=== PATIENT | male | born 1970 | race Caucasian/White ===

== ENCOUNTER 2024-09-17 17:41 | Emergency (ER) | payer SELFPAY ==
[2024-09-17] VITALS (7 sets, daily range): BP systolic 136–147; BP diastolic 82–97; PULSE 88–119; RESP 15–95; TEMP 36.4–37.2; O2SAT 93–97; BMI 34.6
--- NOTE | 2024-09-17 17:51 | EKG_ITS ---
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
--- NOTE | 2024-09-17 17:51 | XR_ITS ---
Examination: CT brain head without contrast. 2-D sagittal coronal reconstructions Date and time of exam:September 17, 2024 1759 hours INDICATIONS: Stroke alert onset focal neurologic deficit today CTDI: vol (mGy):60.1 DLP: (mGycm):1298 Technique: Multiple CT axial sections of the brain have been obtained, 5 mm slice thickness. Contrast has not been administered. 2-D sagittal, coronal reconstructions have been obtained Low dose protocols were performed. One or more of the following dose reduction techniques were used; automated exposure control, adjustment of the mA and/or KV according to patient size, use of iterative reconstruction technique. Findings: No significant ventricular enlargement. Intra-axial or extra-axial hemorrhage density is not seen. No mass effect or midline shift Basal cisterns are not remarkable. Fourth ventricle is midline. Cranial vault intact. Impression: Negative for acute hemorrhage, mass effect or midline shift
--- NOTE | 2024-09-17 18:04 | PC.NURSE ---
PT BROUGHT IN BY FOR RIGHT SIDED FACIAL WEAKNESS. STATES LAST KNOWN WELL WAS LAST NIGHT 2330. STATES THAT THIS MORNING AROUND PT C/O HIS LIP FEELING FUNNY , THEN AT 1630 PT STATED THAT HE COULD NOT HOLD WATER IN HIS MOUTH AND THEN NOTICED THAT PT HAD RIGHT SIDED FACIAL WEAKNESS. PT WAS THEN BROUGHT INTO THE ER FOR EVALUATION AND TAKE STRAIGHT TO CT. PT IS CURRENTLY IN CT.
--- NOTE | 2024-09-17 18:07 | PD.EDNEURO ---
Neuro Symptoms Deficit-RME/HPI General Chief Complaint: Neuro Symptoms/Deficit Stated Complaint: RIGHT SIDE WEAKNESS TO FACE Time Seen by Provider: 09/17/24 18:06 Arrival date/time: 09/17/24 17:41 54 year old male present to emergency room with c/o of right side weakness for 1 hour. pt report facial droop and dripping out of mouth when drinking water. LOCATION: right facial droop SEVERITY: Symptoms are described as being severe with limitations on activities of daily living CONTEXT: The patient is unable to identify any inciting events. DURATION/TIMING: The symptoms started approximately [one day] ago and have been constant since and have been progressive getting worse. ASSOCIATED SYMPTOMS: The patient is unable to identify any other associated symptoms. MODIFYING FACTORS: The patient is unable to identify any alleviating or aggravating symptoms. PERTINENT ROS: no fevers, no cough, no pleuritic pain, no ripping or tearing sensations, denies any lower extremity edema and no unilateral swelling, no chest pain/shortness of breath no nausea,vomiting, diarrhea, no dizziness/headache no rash no loc/syncope episode no abd/back pain no dsyuria,urgency,frequency REVIEW OF SYSTEMS: See History of Present Illness - with the exception of those mentioned in the history of present illness, all other systems reviewed and reported as negative GENERAL: In general the patient is awake, interactive, in an emergency department [facility], wearing a hospital gown. HEAD/EARS/EYES/NOSE/THROAT: normo-cephalic, atraumatic, extra-ocular eye movements are intact without nystagmus or evidence of entrapment, pupils are equal round and reactive to light, mucus membranes are moist, anicteric, palpebral conjunctiva is pink. Thyroid is not tender, not enlarged and not nodular, no carotid bruit, no jugular venous distension, trachea is midline, uvula unremarkable, oropharyngeal cavity unremarkable without tonsilar swelling. No midline c-spine tenderness. Temporal arteries are not enlarged or tender. Tympanic membranes are within normal limits without erythema, distortion, fluid levels, fluid leak or anatomical signs of trauma. No evidence of submandibular or anterior cervical lymphadenopathy. Visual perception is full in all jesus. CARDIOVASCULAR: regular rate and regular rhythm, no murmurs/rubs or gallops, normal S1 and S2, heart sounds are not distant, strong pulses in all four extremities that are equal and symmetric bilateral upper and lower extremities. CHEST/PULMONARY: normal chest rise and fall, good air movement, clear to auscultation bilaterally without rhonchi, rales or wheezing, normal inspiratory to expiratory ratios without evidence of respiratory distress. ABDOMEN: soft, not tender, no rebound, no guarding, normal bowel sounds that are present in all four quadrants, no palpable organomegaly, no pulsatile masses, liver margin is not enlarged, not nodular and not tender, no caput or telangiectasia??s, no ascites, bilateral inguinal rings are closed without mass or hernia. BACK: no c/t/l spine tenderness, normal range of motion without reproducible pain, no costoverterbral angle tenderness, no step-offs or midline ecchymosis, no trauma. NEUROLOGICAL: + right facial droop, speech is clear, no obvious word finding difficulties and answers to questions are provided without hesitation or difficulty, normal motor and sensory function of the bilateral upper and lower extremities that are equal and symmetric left and right, no evidence of cerebellar dysfunction. Normal strength bilateral shoulder, elbows, wrists, hips, knees, and ankles to flexion, extension, internal and external rotation. EXTREMITY: no tenderness to palpation over the long bones or large joints of the bilateral upper and lower extremities, no joint swelling, no joint erythema, no signs of trauma, no unilateral leg swelling and no peripheral edema. SKIN: warm, dry, well-perfused, no jaundice, no rash, normal capillary refill, no telangiectasias or petechia. PSYCH: calm, cooperative, no evidence of psychosis or agitation, thought process is appropriate and no pressured speech. NIHSS is [ 1] Related Data Previous Rx's ?Medication ?Instructions ?Recorded acyclovir 400 mg tablet 400 mg PO .5x 7 days #35 tabs 09/17/24 Allergies Allergy/AdvReac Type Severity Reaction Status Date / Time Penicillins Allergy Verified 09/17/24 19:53 Course Quality Measures Suspected type of Stroke: Unknown at this time (n/a, most likely hayes palsy ) Tenecteplase given: Reason(s) TPA not given: Unable to determine eligibility (hayes palsy, not recommend by teleneuro ) not given stroke Orders Category Date Time Status Bedside Blood Glucose NOW Care 09/17/24 17:51 Active [employer] NOW Care 09/17/24 17:51 Active Continuous Pulse Oximetry NOW Care 09/17/24 17:51 Completed EKG (ED ONLY) *Do not use* NOW Care 09/17/24 17:51 Completed In and Out Catheter NEEDED Care 09/17/24 17:51 Active Insert IV NOW Care 09/17/24 17:51 Active NIH Stroke Scale now Care 09/17/24 17:51 Active NPO NOW Care 09/17/24 17:51 Active Nurse Swallow Screen x1 Care 09/17/24 17:51 Active Consult to Neurology / Tele-Neurology Routine Cons 09/17/24 17:[address] stroke protocol Stat Exams 09/17/24 17:51 Completed EKG (ED Only) Stat Exams 09/17/24 17:51 Draft BNP [B-Type Natriuretic Peptide] Stat Lab 09/17/24 19:00 Completed Beta Hydroxybutyrate Stat Lab 09/17/24 19:00 Completed CBC Stat Lab 09/17/24 17:57 Completed Comprehensive Metabolic Panel Stat Lab 09/17/24 17:57 Completed Drug Screen,Urine Stat Lab 09/17/24 18:54 Completed Magnesium Stat Lab 09/17/24 17:57 Completed Partial Thromboplastin Time Stat Lab 09/17/24 17:57 Completed Prothrombin Time with INR Stat Lab 09/17/24 17:57 Completed Troponin I Stat Lab 09/17/24 17:57 Completed Acyclovir Inj [Zovirax Inj] 800 mg Med 09/17/24 19:17 Discontinued Sodium Chloride 0.9% [Ns] 100 ml IV X1 Sodium Chloride 0.9% 1000 ml [Ns] 1,000 ml Med 09/17/24 18:49 Discontinued IV 999 mls/hr Sodium Chloride 0.9% 1000 ml [Ns] 1,000 ml Med 09/17/24 18:51 Discontinued IV 999 mls/hr Sodium Chloride 0.9% 1000 ml [Ns] 1,000 ml Med 09/17/24 20:40 Discontinued IV 999 mls/hr Oxygen Delivery NOW RT 09/17/24 17:51 Active Reevaluation(s) Reevaluation #1: pt is feeling good, comfortable to go home to follow up with PCP Vital Signs Vital signs: Vital Signs Pulse Rate 119 H 09/17/24 18:15 Neuro Symptoms / Deficit MDM Narrative MDM Narrative:: 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 ? ?History and physical consistent with Hayes''s Palsy with no forehead sparing. Will treat with antiviral''s and prednisone as appropriate. Will recommend eye lubricating gel to prevent dry eye and irritation of the eye with incomplete eye closure. Will recommend FU with PCP in 1 week.?? Healthy pt with gradual onset of right peripheral VII cranial nerve dysfunction. No cause elicited. Pt with no known tick bite and not recently in tick endemic area. no indication to send lyme studies. No URI or herpes infection. DW pt pathophysiology and recommended treatment. DW pt? R/b antivirals and steroids. DW pt risk of stomach irritation, stimulation and blood sugar effects in diabetes. DW pt sx inconsistent with dx and need to go to ED for right sided sx, arm or leg sx, headache, fever. Referral to neurologist for follow up. Prognosis DW pt including potential for persistent or recurrent sx.?? Medical decision making: pt here for evaluation of R sided facial droop with last known 1 hour ago Code stroke not activated given time of onset. He does have some very mild R sided eyebrow weakness and I suspect Hayes's Palsy.CT head wnl, No cardiac arrhythmias, no significant electrolyte abnormalities, no rashes to suggest zoster eruption. Pt will be d/c home on acylovi 400mg 5x for 7 days . Pt unsure if he will take the steroids due to his DM and this is acceptable. Discussed that most important thing is eye care--tape eyelid at night, artificial tears through the day, f/u with his night nurse in a few weeks for recheck. Pt to f/u with his PMD as needed.? Patient data External records reviewed:: [facility] previous records Clinical information provided by:: patient and family Social determinants that could affect healthcare access:: none Patient has the following chronic illnesses:: DM How is presenting disease/condition affected by chronic disease/condition?: uneffected by Evaluation data The following diagnostics were reviewed and interpreted by me:: lab results, radiology exam(s) and EKG tracing(s) Lab and/or radiology exams considered but not ordered:: CTA but teleneuro report no need. Interpretation Summary: CT head no acute findings cbc/cmp + blood glucose, trending down. Medications / Prescriptions Medications or Prescriptions considered but not ordered:: n/a Medication administrations:: Medication Administration History Discontinued Medications Sodium Chloride (Ns) 1,000 mls @ 999 mls/hr IV .Q1H1M ONE Stop: 09/17/24 19:49 Last Admin: 09/17/24 19:42 Dose: Not Given Documented By: CCT Non-Admin Reason: Cancelled by Provider Sodium Chloride (Ns) 1,000 mls @ 999 mls/hr IV .Q1H1M ONE Stop: 09/17/24 19:51 Last Infusion: 09/17/24 21:15 Dose: Infused Documented By: Admin: 09/17/24 19:45 Dose: 999 mls/hr Documented By: CCT Acyclovir Sodium 800 mg/ (Sodium Chloride) 116 mls @ 87.879 mls/hr IV X1 ONE Stop: 09/17/24 20:36 Last Infusion: 09/17/24 21:14 Dose: Infused Documented By: Admin: 09/17/24 19:44 Dose: 87.879 mls/hr Documented By: CCT Sodium Chloride (Ns) 1,000 mls @ 999 mls/hr IV .Q1H1M ONE Stop: 09/17/24 21:40 Last Admin: 09/17/24 20:57 Dose: 999 mls/hr Documented By: CCT as stated above Consultations Consultation(s) initiated? (list below): Yes Consultation #1 (Physician, Specialty, Details): spoke with teleneuro report most likely bells palsy, patient can go home , no need for CTA. blood glucose is trending downward after IV fluids, discussed about reduction of suger intake. Diagnosis Neuro Differential Diagnosis: subarachnoid hemorrhage, cerebrovascular accident, transient cerebral ischemia and other (Hayes palsy, DM ) Most likely diagnosis given after review of the tests above:: Hayes palsy, hyperglycermia Admission Indicated Admission indicated?: not indicated Admission Request Was there a request for admission?: No Disposition Plan Disposition Plan: Discharge Discharge Attestation Discharge Attestation: The patient and all family members were given an opportunity to ask questions and understood the discharge instructions. Discharge instructions specifically effects, indications for sooner follow up or return to the emergency department, and the expected course of current diagnosis. Patient condition: Stable Discharge Plan Plan Patient Disposition: HOME (Self Care) Health Concerns: Follow up with PCP as directed Return to ED if symptoms worsen Prescriptions/Referrals Prescriptions/Med Rec: New acyclovir 400 mg tablet 400 mg PO .5x 7 Days Qty: 35 0RF Rx Instructions: while awake; give 5 doses in 24 hours Problem List Clinical Impression: Hayes palsy, Hyperglycemia Patient/Caregiver Discharge Instructions Education Materials: ED Hayes's Palsy, ED Diabetes with High Blood Sugar Print Language: Occitan Stand Alone Forms: Keyanna Award Info., Patient Portal Info Letter
[2024-09-17 18:12] LABS: Basophils % (Auto) 1 % (0-2.5); Eosinophils # (Auto) 0.2 Thou/mm3 (0.0-0.5); Eosinophils % (Auto) 4 % (0-10); Hematocrit 39.8 % (41.0-53.0); Hemoglobin 14.2 g/dL (13.5-16.0); Immature Granulocytes % (Auto) 1 % (0-0); Immature Granulocytes Auto 0.04 Thou/mm3 (0.00-0.00); Lymphocytes # (Auto) 1.7 Thou/mm3 (1.0-4.8); Lymphocytes % (Auto) 28 % (10-50); Mean Corpuscular HGB Conc 35.7 g/dl (31.0-37.0); Mean Corpuscular Hemoglobin 31.2 pg (25.0-35.0); Mean Corpuscular Volume 88 fL (80-100); Monocytes # (Auto) 0.5 Thou/mm3 (0.0-0.8); Monocytes % (Auto) 8 % (0-12); Neutrophils # (Auto) 3.6 Thou/mm3 (1.8-7.7); Neutrophils % (Auto) 59 % (37-80); Nucleated Red Blood Cell # 0.06 Thou/mm3 (0.00-0.00); Nucleated Red Blood Cell % 1 /100 WBC (0); Platelet Count 275 Thou/mm3 (140-440); RDW Standard Deviation 40.2 fL (35.1-43.9); Red Blood Count 4.55 Miln/mm3 (4.50-5.90); White Blood Count 6.1 Thou/mm3 (3.8-10.6)
[2024-09-17 18:27] LABS: INR 0.9 (0.9-1.3); Partial Thromboplastin Time 24.8 Seconds (22.0-36.0); Prothrombin Time 10.4 Seconds (9.0-12.2)
[2024-09-17 18:46] LABS: Alanine Aminotransferase 27 U/L (10-49); Albumin, Serum 4.5 gm/dL (3.5-5.0); Albumin/Globulin Ratio 1.9 (1.2-2.2); Alkaline Phosphatase 91 U/L (46-116); Anion Gap 14 (7-16); Aspartate Amino Transferase 20 U/L (0-34); BUN/Creatinine Ratio 12 Ratio (12-20); Bilirubin,Total 0.3 mg/dL (0.3-1.2); Blood Urea Nitrogen 16 mg/dL (9-23); Calcium 9.9 mg/dL (8.3-10.6); Calcium (Corrected) 9.9 mg/dL (8.5-10.1); Carbon Dioxide 22.3 mMol/L (20.0-31.0); Chloride 99 mMol/L (98-107); Creatinine (Component) 1.3 mg/dL (0.6-1.3); Globulin 2.4 gm/dL (2.3-3.5); Magnesium 1.8 mg/dL (1.6-2.6); Osmolality,Calculated 294 (275-295); Potassium 4.1 mMol/L (3.4-5.1); Sodium 135 mMol/L (136-145); Total Protein 6.9 gm/dL (5.7-8.2); Troponin I < 0.002 ng/mL (0.0-0.045); eGFR > 60 See Note
[2024-09-17 18:47] LABS: Glucose 517 mg/dL (74-106)
--- NOTE | 2024-09-17 18:50 | PD.TNEURO ---
Tele Neuro Consultation Consultation Date 09/17/24 Most Recent Vital Signs Last Vital Signs Temp 98.5 F 09/17/24 18:23 Pulse 116 H 09/17/24 18:23 Resp 19 09/17/24 18:23 BP 147/92 H 09/17/24 18:23 Pulse Ox 95 09/17/24 18:23 O2 Del Method Room Air 09/17/24 18:23 Laboratory-Coagulation Panel PT 10.4 Seconds (9.0-12.2) 09/17/24 17:57 INR 0.9 (0.9-1.3) 09/17/24 17:57 APTT 24.8 Seconds (22.0-36.0) 09/17/24 17:57 Consultation Narrative [facility] Patient Name:???Germán Garrett Date of :???1970 Identification Number:??? Date of Service:???09/17/2024 17:48:53 Diagnosis:?G51.0 - Hayes palsy Impression: ?54M with PMHx C spine surgery (states LUE temporarily paralyzed after this), DMII, presents with R face changes, last normal at 10am this morning, worsening throughout the day. He notices his R eye won't close, and R side of his lips feels like novocaine. It was difficult to drink water. No dysphagia. He feels lightheaded. No numbness or weakness of any extremity. He has never had this happen before. ? ?On exam patient has R peripheral CN7 pattern weakness with reduced prominence of forehead wrinkles on the right, weakness of orbicularis karen and orbicularis oculi on the right, and no other deficits. Presentation consistent with Hayes?s palsy. ? Our recommendations are outlined below. Recommendations: ?Prednisone 60mg daily for 1 week; Valtrex 1 gram PO TID for 1 week; ?Strict return precautions - if develops contralateral face weakness, any involvement of any extremity, or no improvement in 2 weeks; ?Imperative to control DMII; ?Eye patch/eye ointment for at night Advanced Imaging:Advanced Imaging Deferred because: Stroke not suspected with clinical presentation and exam Metrics: Last Known Well: 09/17/2024 10:00:00 Dispatch Time: 09/17/2024 17:48:53 Arrival Time: 09/17/2024 17:41:00 Initial Response Time: 09/17/2024 17:50:56Symptoms: R eye weakness. Initial patient interaction: 09/17/2024 17:51:00 NIHSS Assessment Completed: 09/17/2024 18:20:00Patient is not a candidate for Thrombolytic. Thrombolytic Medical Decision: 09/17/2024 18:20:30Patient was not deemed candidate for Thrombolytic because of following reasons: other diagnosis suspected bells palsy. CT head showed no acute hemorrhage or acute core infarct. Primary Provider Notified of Diagnostic Impression and Management Plan on: 09/17/2024 18:24:21 History of Present Illness:Patient is a 54 year old Male. Patient was brought by private transportation with symptoms of R eye weakness. 54M with PMHx C spine surgery (states LUE temporarily paralyzed after this), DMII, presents with R face changes, last normal at 10am this morning, worsening throughout the day. He notices his R eye won't close, and R side of his lips feels like novocaine. It was difficult to drink water. No dysphagia. He feels lightheaded. No numbness or weakness of any extremity. He has never had this happen before. ? Past Medical History: ?Diabetes Mellitus Medications: No Anticoagulant use? No Antiplatelet use Reviewed EMR for current medications Allergies:? Reviewed Social History: Smoking: No Family History: There is no family history of premature cerebrovascular disease pertinent to this consultation ROS : 14 Points Review of Systems was performed and was negative except mentioned in HPI. Past Surgical History: There Is No Surgical History Contributory To Today?s Visit ? Examination: BP(146/95),?Pulse(116),?Blood Glucose(516) 1A: Level of Consciousness - Alert; keenly responsive?+ 0 1B: Ask Month and Age - Both Questions Right?+ 0 1C: Blink Eyes & Squeeze Hands - Performs Both Tasks?+ 0 2: Test Horizontal Extraocular Movements - Normal?+ 0 3: Test Visual Hodge - No Visual Loss?+ 0 4: Test Facial Palsy (Use Grimace if Obtunded) - Unilateral Complete paralysis (upper/lower face)?+ 3 5A: Test Left Arm Motor Drift - No Drift for 10 Seconds?+ 0 5B: Test Right Arm Motor Drift - No Drift for 10 Seconds?+ 0 6A: Test Left Leg Motor Drift - No Drift for 5 Seconds?+ 0 6B: Test Right Leg Motor Drift - No Drift for 5 Seconds?+ 0 7: Test Limb Ataxia (FNF/Heel-Daniel) - No Ataxia?+ 0 8: Test Sensation - Normal; No sensory loss?+ 0 9: Test Language/Aphasia - Normal; No aphasia?+ 0 10: Test Dysarthria - Normal?+ 0 11: Test Extinction/Inattention - No abnormality?+ 0 NIHSS Score:?3 Pre-Morbid Modified Samina Scale:1 Points = No significant disability despite symptoms; able to carry out all usual duties and activities Spoke with :?ER physician This consult was conducted in real time using interactive audio and video technology. Patient was informed of the technology being used for this visit and agreed to proceed. Patient located in hospital and provider located at home/office setting. Patient is being evaluated for possible acute neurologic impairment and high probability of imminent or life-threatening deterioration. I spent total of 35 minutes providing care to this patient, including time for face to face visit via telemedicine, review of medical records, imaging studies and discussion of findings with providers, the patient and/or family. Dr Tiffanie Cruz [facility] For Inpatient follow-up with [facility] physician please call [facility] at . As we are not an outpatient service for any post hospital discharge needs please contact the hospital for assistance. If you have any questions for the [facility] physicians or need to reconsult for clinical or diagnostic changes please contact us via [facility] at .
[2024-09-17 19:14] LABS: Beta Hydroxybutyrate 0.3 mmol/L (<0.6)
[2024-09-17 19:33] LABS: B-Type Natriuretic Peptide < 20 pg/mL (0-100)
[2024-09-17] MEDS: ACYCLOVIR INJ 800 MG in SODIUM CHLORIDE 0.9% 100 ML 87.879 MG IV (19:44)
[2024-09-17] MEDS: SODIUM CHLORIDE 0.9% 1000 ML 1,000 ML 999 ML IV ×2 (19:45→20:57)
[2024-09-17 20:55] LABS: Amphetamine/Methamp Scrn,U Negative (Negative); Barbiturate Screen,Urine Negative (Negative); Benzodiazepines Screen,Urine Negative (Negative); Benzoylecgonine Screen, Ur Negative (Negative); Fentanyl Screen,Urine Negative (Negative); Opiate Screen,Urine Negative (Negative); THC Screen,Urine Negative (Negative)
== END 2024-09-17 22:40 | disposition home or self-care (01) ==
PROVIDERS: Physician Assistant; Emergency Provider Emergency Medicine; PCP Physician Assistant
DX: G51.0 Bell's palsy (principal); E11.65 Type 2 diabetes mellitus with hyperglycemia; R00.0 Tachycardia, unspecified
CPT/HCPCS: 36415; 70450; 80053; 80307; 82010; 83735; 83880; 84484; 85025; 85610; 85730; 93005; 96365; 99284; J0133; J7030; J7050